=== PATIENT | male | born 1970 | race Caucasian/White ===

== ENCOUNTER 2017-10-13 22:28 | Emergency (ER) | payer MEDICARE, MEDICAID ==
[~2017-10-13] VITALS: Ht 185.4 cm; Wt 79.4 kg
[~2017-10-13 22:28] MED LIST: IBUP-785 PO; [UNRECOGNIZED DRUG - REMARK] PO
--- NOTE | 2017-10-13 23:38 | NUR ---
XRAY AT BEDSIDE
--- NOTE | 2017-10-13 23:54 | NUR ---
Patient discharged to home in stable conditon. Written and verbal after care instructions given. Patient verbalizes understanding of instructions. Ambulated from ER with stable gait. All belongings with patient. VSS.
[2017-10-13 23:55] VITALS: BP 121/78
== END 2017-10-13 23:55 | disposition home or self-care (01) ==
LOC: ER 22:28
DX: S16.1XXA Strain of muscle, fascia and tendon at neck level, initial encounter (principal); Z79.1 Long term (current) use of non-steroidal anti-inflammatories (NSAID); Z79.899 Other long term (current) drug therapy; V43.53XA Car driver injured in collision with pick-up truck in traffic accident, initial encounter; Y93.89 Activity, other specified; Y92.410 Unspecified street and highway as the place of occurrence of the external cause; Y99.8 Other external cause status
CPT/HCPCS: 73030; A4663